=== PATIENT | male | born 1960 | race Caucasian/White ===

== ENCOUNTER 2023-02-09 20:28 | Emergency (ER) | payer SELFPAY ==
[2023-02-09 20:35] VITALS: BP 127/80; PULSE 69; RESP 18; TEMP 97.5; BMI 24.9
== END 2023-02-09 22:28 | disposition home or self-care (01) ==
LOC: JER 20:28
DX: K64.4 Residual hemorrhoidal skin tags (principal)
CPT/HCPCS: 99282-25